=== PATIENT | female | born 1940 | race Caucasian/White ===

== ENCOUNTER 2017-06-29 16:46 | Emergency (ER) | payer MEDICARE ==
[~2017-06-29] VITALS: Ht 170.2 cm; Wt 61.8 kg
[2017-06-29] MEDS ORDERED: SODIUM CHLORIDE FLUSH 10ML SYR IVF ONE (17:30)
[2017-06-29] MEDS ORDERED: ASPIRIN 81 MG TABLET CHEW PO ONE (17:30)
[2017-06-29 17:32] LABS: BASOPHILS # (AUTO) 0.04 x10^3/uL (0-0.1); BASOPHILS % (AUTO) 0 % (0-1); EOSINOPHILS # (AUTO) 0.18 x10^3/uL (0-0.4); EOSINOPHILS % (AUTO) 2 % (1-7); LYMPHOCYTES # (AUTO) 1.62 x10^3/uL (1-3.4); LYMPHOCYTES % (AUTO) 14 % (22-44); MD NO; MEAN CORPUSCULAR HEMOGLOBIN 24.9 pg (27.0-34.8); MEAN CORPUSCULAR HGB CONC 31.8 g/dL (32.4-35.8); MEAN CORPUSCULAR VOLUME 78.4 fL (80-100); MEAN PLATELET VOLUME 7.6 fL (7.4-10.4); MONOCYTES # (AUTO) 0.52 x10^3/uL (0.2-0.8); MONOCYTES % (AUTO) 5 % (2-9); NEUTROPHILS % (AUTO) 79 % (42-75); PLATELET COUNT 344 x10^3/uL (130-400); RED BLOOD COUNT 5.46 x10^6/uL (3.82-5.3); RED CELL DISTRIBUTION WIDTH 18.2 % (9.6-15.2)
[2017-06-29] MEDS ORDERED: ASPIRIN 81 MG TABLET CHEW ONE (17:37)
[2017-06-29 17:43] LABS: ALANINE AMINOTRANSFERASE 28 U/L (12-78); ALBUMIN 2.6 g/dL (3.4-5.0); ANION GAP 6 mmol/L (5-15); CALCIUM 8.1 mg/dL (8.5-10.1); CHLORIDE 104 mmol/L (98-107); CREATININE 0.72 mg/dL (0.55-1.02)
[2017-06-29 17:47] LABS: ALKALINE PHOSPHATASE 103 U/L (45-117); BILIRUBIN,TOTAL 0.3 mg/dL (0.2-1.0); TOTAL PROTEIN 6.5 g/dL (6.4-8.2); TROPONIN I < 0.015 ng/mL (0.000-0.045)
[2017-06-29] MEDS ORDERED: ALBUTEROL/IPRATROPIUM 2.5MG/0.5MG, 3 ML NPPB ONE (18:00)
[2017-06-29] MEDS ORDERED: ALBUTEROL/IPRATROPIUM 2.5MG/0.5MG, 3 ML ONE (18:29)
[2017-06-29 20:04] VITALS: BP 133/85
== END 2017-06-29 21:05 | disposition home or self-care (01) ==
LOC: ED 20:02
DX: J44.1 Chronic obstructive pulmonary disease with (acute) exacerbation (principal); M25.572 Pain in left ankle and joints of left foot; G89.29 Other chronic pain; F41.9 Anxiety disorder, unspecified
CPT/HCPCS: 36415; 71045; 80053; 84484; 85025; 93005; 94640; 99285; Q0177; J7620

== ENCOUNTER 2017-11-08 16:36 | Emergency (ER) | payer MEDICARE ==
[~2017-11-08] VITALS: Ht 172.7 cm; Wt 65.0 kg
[~2017-11-08 16:36] MED LIST: LORA1TAB PO; TRAM50TA2 PO
[2017-11-08] MEDS ORDERED: TAMS0.4C2 PO (16:55)
[2017-11-08] MEDS ORDERED: TRAZ100T15 PO (16:55)
[2017-11-08] MEDS ORDERED: PANT20TA3 PO (16:55)
[2017-11-08] MEDS ORDERED: DIVA250T6 PO (16:55)
[2017-11-08] MEDS ORDERED: MELO15TA24 PO (16:55)
[2017-11-08] MEDS ORDERED: DONE10TA7 PO (16:55)
[2017-11-08] MEDS ORDERED: ACET325T21 PO (16:55)
[2017-11-08] MEDS ORDERED: VENL37.58 PO (16:55)
[2017-11-08 17:25] LABS: INTERNATIONAL NORMALIZED RATIO 0.98 (0.93-1.1); PROTHROMBIN TIME 10.2 Seconds (9.6-11.5)
[2017-11-08 17:26] LABS: BASOPHILS % (AUTO) 2 % (0-1); EOSINOPHILS # (AUTO) 0.18 x10^3/uL (0-0.4); EOSINOPHILS % (AUTO) 3 % (1-7); LYMPHOCYTES % (AUTO) 34 % (22-44); MD NO; MEAN CORPUSCULAR HEMOGLOBIN 22.5 pg (27.5-34.5); MEAN CORPUSCULAR HGB CONC 31.8 g/dL (33.2-36.2); MEAN CORPUSCULAR VOLUME 70.8 fL (81-97); MEAN PLATELET VOLUME 8.4 fL (7.4-10.4); MONOCYTES # (AUTO) 0.57 x10^3/uL (0.2-0.8); MONOCYTES % (AUTO) 10 % (2-9); NEUTROPHILS # (AUTO) 2.83 x10^3/uL (1.8-6.8); NEUTROPHILS % (AUTO) 51 % (42-75); PLATELET COUNT 314 x10^3/uL (130-400); RED BLOOD COUNT 5.85 x10^6/uL (4.38-5.82); RED CELL DISTRIBUTION WIDTH 17.3 % (9.4-14.8)
[2017-11-08 17:30] LABS: ALBUMIN 3.5 g/dL (3.4-5.0); ANION GAP 9 mmol/L (5-15); CALCIUM 8.4 mg/dL (8.5-10.1); CHLORIDE 108 mmol/L (98-107)
[2017-11-08 17:38] LABS: ALANINE AMINOTRANSFERASE 23 U/L (12-78); ALKALINE PHOSPHATASE 67 U/L (45-117); BILIRUBIN,TOTAL 0.5 mg/dL (0.2-1.0); TOTAL PROTEIN 6.5 g/dL (6.4-8.2)
[2017-11-08 18:30] VITALS: BP 127/89
== END 2017-11-08 18:59 | disposition home or self-care (01) ==
LOC: ED 18:49
DX: R53.1 Weakness (principal); M25.572 Pain in left ankle and joints of left foot; Z72.9 Problem related to lifestyle, unspecified; J44.9 Chronic obstructive pulmonary disease, unspecified; Z59.0 Homelessness; Z86.73 Personal history of transient ischemic attack (TIA), and cerebral infarction without residual deficits
CPT/HCPCS: 36415; 80053; 83690; 85025; 85610; 93005; 99285

== ENCOUNTER 2019-05-15 13:36 | Emergency (ER) | payer MEDICARE, MEDICAID ==
[~2019-05-15 13:36] MED LIST changes: +ACET325T21 PO; +DIVA-59 PO; +DONE10TA7 PO; +MELO15TA24 PO; +PANT20TA3 PO; +TAMS0.4C2 PO; +TRAZ-137 PO; +VENL37.58 PO
[2019-05-15 13:45] VITALS: BP 119/73
--- NOTE | 2019-05-15 13:47 | NUR ---
BIB BY JONO FOR MUSCLE WEAKNESS/COUGH/SORE THROAT/N/V/D X 1 DAY 89F, 119/73, 79 DROPLET PRECAUTIONS PLACED
[2019-05-15 14:20] LABS: MEAN CORPUSCULAR HEMOGLOBIN 19.9 pg (27.5-34.5); MEAN CORPUSCULAR HGB CONC 30.2 g/dL (33.2-36.2); MEAN CORPUSCULAR VOLUME 65.8 fL (81-97); MEAN PLATELET VOLUME 8.3 fL (7.4-10.4); PLATELET COUNT 256 x10^3/uL (130-400); RED BLOOD COUNT 5.99 x10^6/uL (4.38-5.82); RED CELL DISTRIBUTION WIDTH 19.7 % (9.4-14.8)
[2019-05-15 14:28] LABS: ALANINE AMINOTRANSFERASE 22 U/L (12-78); ALBUMIN 3.4 g/dL (3.4-5.0); ANION GAP 3 mmol/L (5-15); CALCIUM 8.2 mg/dL (8.5-10.1); CHLORIDE 108 mmol/L (98-107); CREATININE 1.04 mg/dL (0.7-1.3)
[2019-05-15 14:32] LABS: ALKALINE PHOSPHATASE 93 U/L (45-117); TOTAL PROTEIN 6.7 g/dL (6.4-8.2); TROPONIN I < 0.015 ng/mL (0.000-0.045)
[2019-05-15 14:34] LABS: BILIRUBIN,TOTAL 0.7 mg/dL (0.2-1.0)
[2019-05-15 15:20] LABS: BASOPHILS # (AUTO) 0.08 x10^3/uL (0-0.1); BASOPHILS % (AUTO) 1 % (0-1); EOSINOPHILS # (AUTO) 0.16 x10^3/uL (0-0.4); EOSINOPHILS % (AUTO) 2 % (1-7); LYMPHOCYTES # (AUTO) 0.97 x10^3/uL (1-3.4); LYMPHOCYTES % (AUTO) 10 % (22-44); MD MORPH REVIEW ONLY; MONOCYTES # (AUTO) 0.66 x10^3/uL (0.2-0.8); MONOCYTES % (AUTO) 7 % (2-9); NEUTROPHILS # (AUTO) 7.94 x10^3/uL (1.8-6.8); NEUTROPHILS % (AUTO) 81 % (42-75)
[2019-05-15 15:21] LABS: ANISOCYTOSIS 1+; HYPOCHROMIA 1+; MICROCYTOSIS 1+; OVALOCYTES 1+; POLYCHROMASIA 1+
[2019-05-15 15:22] LABS: <PLATELET ESTIMATE> ADEQUATE; <PLT MORPHOLOGY> NORMAL PLT MORPH; TEAR DROPS 1+
--- NOTE | 2019-05-15 16:05 | NUR ---
TASK RN: PT STATES DIARRHEA STARTED TODAY PT HAD CONTINUOUS DIARRHEA. DENIES ANY RECENT ABX USE. PT ALSO C/O MILD ABD PAIN THROUGHOUT. PT RESTING ON IVÁN. LO.
[2019-05-15 16:08] LABS: MICROSCOPIC NOT IND
[2019-05-15 16:12] LABS: CULTURE INDICATED? NO
--- NOTE | 2019-05-15 17:06 | NUR ---
HARSHIL RN: PT LEFT BEFORE WRITTEN DISCHARGE INSTRUCTIONS COULD BE GIVEN.
--- NOTE | 2019-05-15 17:06 | NUR ---
HARSHIL RN: PT LEFT BEFORE DISCHARGE VS COULD BE DONE.
== END 2019-05-15 17:07 | disposition home or self-care (01) ==
LOC: ED 17:04
DX: R19.7 Diarrhea, unspecified (principal); R05 Cough; R53.1 Weakness
CPT/HCPCS: 36415; 74022; 80053; 81003; 83605; 83690; 84484; 85025; 93005; 99284

== ENCOUNTER 2019-08-02 12:42 | Outpatient (CLI) | payer MEDICARE, MEDICAID ==
[~2019-08-02 12:42] MED LIST changes: -TRAZ-137 PO; +TRAZ-175 PO
== END 2019-08-02 23:59 | disposition home or self-care (01) ==
LOC: RAD 12:42
PROVIDERS: ATTEND Student in an Organized Health Care Education/Training Program
DX: S93.402A Sprain of unspecified ligament of left ankle, initial encounter (principal); M19.072 Primary osteoarthritis, left ankle and foot; M25.772 Osteophyte, left ankle; M21.6X2 Other acquired deformities of left foot; X58.XXXA Exposure to other specified factors, initial encounter; Y93.89 Activity, other specified; Y92.89 Other specified places as the place of occurrence of the external cause; Y99.8 Other external cause status

== ENCOUNTER 2020-08-27 17:58 | Emergency (ER) | payer MEDICARE, MEDICAID ==
[~2020-08-27] VITALS: Ht 172.7 cm; Wt 68.0 kg
[~2020-08-27 17:58] MED LIST changes: +ACET-2274 PO; -ACET325T21 PO; -PANT20TA3 PO; +PANT20TA4 PO
--- NOTE | 2020-08-27 18:16 | NUR ---
bib ems. " pt had unwitnessed fall. has a abrasion on left forehead. fsbs 85 " pt a & o x4. strong smell of etoh.
--- NOTE | 2020-08-27 18:30 | NUR ---
aminta rodrigues called. pt refusing to put his dog in the er kennal. pt in room yelling. repeating the same thing over and over"ineed my glasses" pt calling staff "liers"
--- NOTE | 2020-08-27 19:06 | NUR ---
pt back from ct. erik at staff.
--- NOTE | 2020-08-27 19:56 | NUR ---
pt refusing vital signs
== END 2020-08-27 20:39 | disposition home or self-care (01) ==
LOC: ED 20:33
DX: S00.81XA Abrasion of other part of head, initial encounter (principal); S09.90XA Unspecified injury of head, initial encounter; F10.229 Alcohol dependence with intoxication, unspecified; Y90.0 Blood alcohol level of less than 20 mg/100 ml; W01.0XXA Fall on same level from slipping, tripping and stumbling without subsequent striking against object, initial encounter; J44.9 Chronic obstructive pulmonary disease, unspecified; Y93.89 Activity, other specified; Y92.410 Unspecified street and highway as the place of occurrence of the external cause; Y99.8 Other external cause status
CPT/HCPCS: 70450; 99284

== ENCOUNTER 2021-02-23 07:22 | Emergency (ER) | payer MEDICARE, MEDICAID ==
[~2021-02-23] VITALS: Ht 170.2 cm; Wt 70.0 kg
--- NOTE | 2021-02-23 07:45 | NUR ---
PT PLACED IN HOSPITAL GOWN. PT UPSET ABOUT HAVING TO PUT ON A GOWN, STATED, "THIS IS SO RIDICULOUS, I SHOULDV'E WENT TO [place]". PT SHAKING AND FLOPPING GOWN AROUND SAYING HE CAN'T GET IT ON. ASSISTED PT TO PUT HIS ARM IN THE SLEEVE. PT SERVICE DOG ON BED WITH PT. PT STATED SERVICE DOG IS AN EMOTIONAL SUPPORT AND REMINDS HIM TO TAKE HIS MEDS.
[2021-02-23] MEDS ORDERED: ALBUTEROL SULFATE 2.5 MG/3 ML ONE (08:11)
[2021-02-23 08:27] LABS: BASOPHILS % (AUTO) 0 % (0-1); EOSINOPHILS % (AUTO) 0 % (1-7); LYMPHOCYTES % (AUTO) 12 % (22-44); MEAN CORPUSCULAR HGB CONC 30.9 g/dL (33.2-36.2); MEAN PLATELET VOLUME 8.4 fL (7.4-10.4); MONOCYTES % (AUTO) 9 % (2-9); NEUTROPHILS % (AUTO) 78 % (42-75); PLATELET COUNT 268 x10^3/uL (130-400); RED BLOOD COUNT 5.71 x10^6/uL (4.38-5.82); RED CELL DISTRIBUTION WIDTH 19.5 % (9.4-14.8)
[2021-02-23 08:30] VITALS: BP 124/80
[2021-02-23] MEDS ORDERED: ALBUTEROL SULFATE 2.5 MG/3 ML NPPB ONE (08:30)
--- NOTE | 2021-02-23 08:30 | NUR ---
LABS HAVE BEEN DRAWN, CHEST XRAY DONE. PT GIVEN ORDERED MEDS. PT STATED HE'S UPSET THAT WE'RE NOT TREATING WHAT HE REALLY CAME IN FOR. PT STATED HE'S HERE FOR AN ITCHY BUTT. PT INFORMED THAT THERE WERE NO ORDERS FOR THAT AT THIS TIME, ERP WILL BE INFORMED. TURNED ON TREATMENT FOR PT AND HANDED IT TO HIM. PT STATED, "WELL CAN'T YOU GET ME SOMETHING, SOME POWDER OR SOMETHING?" PT INFORMED THERE IS PROBABLY NO POWDER ON THE FLOOR FOR ITCHING. PT ASKED FOR LOTION. PT INFORMED THERE IS LOTION. PT CONTINUED TO COMPLAIN THAT NOTHING HE NEEDS IS BEING DONE FOR HIM AND TOLD NURSE TO GET OUT OF HIS FACE. PT THREW BREATHING TX ON FLOOR THIS RN WALKED OUT OF ROOM.
[2021-02-23 08:36] LABS: ALBUMIN 2.6 g/dL (3.4-5.0); ANION GAP 5 mmol/L (5-15); CALCIUM 8.4 mg/dL (8.5-10.1); CHLORIDE 105 mmol/L (98-107)
[2021-02-23 08:42] LABS: CREATININE 0.89 mg/dL (0.7-1.3)
--- NOTE | 2021-02-23 08:54 | NUR ---
PT HAS REMOVED ALL MONITORS AND IS ASKING TO LEAVE. ERP AWARE, STATED THEY WOULD LIKE TO PROVIDE HIM WITH HIS PRESCRIPTIONS. PT MADE AWARE. PT STATED HE JUST WANTS THE INHALORS THAT HE TOLD THE NICE MAN WITH A HEART, REFERRING TO THE PA.
[2021-02-23 09:17] LABS: ANISOCYTOSIS 1+; HYPOCHROMIA 1+; MICROCYTOSIS 2+
[2021-02-23 09:18] LABS: <PLATELET ESTIMATE> ADEQUATE; <PLT MORPHOLOGY> NORMAL PLT MORPH; OVALOCYTES 1+
--- NOTE | 2021-02-23 09:28 | NUR ---
PT DEMANDING IV BE REMOVED. PT STATED, "I NEED TO GET THE HELL OUT OF HERE, I'M TIRED OF WAITING". PT ALREADY HAS CLOTHING ON. IV REMOVED. PT STARTED TO LEAVE. PT ASKED TO WAIT FOR DC PAPERS. PT RIDE HAS SHOWN UP TO TAKE HIM HOME. WILL SPEAK WITH ERP ABOUT PT RX
--- NOTE | 2021-02-23 09:50 | NUR ---
PT UPSET THAT HE WAS GIVEN A PRESCRIPTION FOR HIS INHALORS AND BUTT POWDER AND NOT GIVEN THE ACTUAL MEDS. EXPLAINED TO PT, WE DO NOT DISPENSE MEDS FROM ED. THAT HE WILL HAVE TO GO TO A PHARMACY. PT STATED WHAT IS HE SUPPOSED TO TAKE FOR HIS COUGH. PT MADE AWARE HE DID NOT ASK FOR ANYTHING FOR A COUGH BUT THERE ARE OTC MEDS AT THE PHARMACY. PT STATED, "I'M 80 YEARS OLD ON A FIXED INCOME AND I HAVE TO BUY MY OWN COUGH MEDICINE? THIS IS BULLSHIT, THIS HOSPITAL IS A MESS". WALKED PT TO DISCHARGE DESK. PT ASKED IF RX WAS FAXED TO HIS PHARMACY. 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 PT AGAIN STATED, THIS IS BULLSHIT. PT TRYING TO FORCE DC DOOR OPEN, YELLING HE NEEDS TO GET OUT OF HERE. SECURITY CALLED TO ASSIST PT IN DISCHARGE.
== END 2021-02-23 10:00 | disposition home or self-care (01) ==
LOC: ED 07:31
DX: J44.1 Chronic obstructive pulmonary disease with (acute) exacerbation (principal); R19.7 Diarrhea, unspecified; F17.210 Nicotine dependence, cigarettes, uncomplicated
CPT/HCPCS: 36415; 71045; 80048; 82040; 83880; 85025; 93005; 94640; 99285; J7512; J7613